=== PATIENT | male | born 1970 | race Caucasian/White ===

== ENCOUNTER 2016-11-08 10:17 | Day surgery (SDC) | payer OTHER ==
[~2016-11-08] VITALS: Ht 170.2 cm; Wt 107.5 kg
[~2016-11-08 10:17] MED LIST: AMITRIPTYLINE H25 MG PO; BACTRIM,SEPT1 TABLET PO; DILAUDID2 MG PO; GABAPENTIN400 MG PO; KEFLEX500 MG PO; MEDROL DOSEPAK4 MG PO; MORPHINE SULFAT15 M1 PO; OXYCODONE-APAP1 EACH; PAIN RELIEF325 MG PO; PERCOCET 10/1 TABLET PO; PERCOCET 5/31 TABLET PO; RELAFEN500 M1 PO; SKELAXIN800 MG PO; ZOFRAN4 MG PO
== END 2016-11-08 12:47 | disposition home or self-care (01) ==
LOC: PAIN 10:17 → SDC 11:00 → PAIN 12:47
DX: M47.896 Other spondylosis, lumbar region (principal); M51.36 Other intervertebral disc degeneration, lumbar region; M43.17 Spondylolisthesis, lumbosacral region; F41.1 Generalized anxiety disorder; I10 Essential (primary) hypertension; E78.5 Hyperlipidemia, unspecified; Z79.891 Long term (current) use of opiate analgesic; G62.9 Polyneuropathy, unspecified; M79.1 Myalgia
CPT/HCPCS: J1030; J2250; J3010; S0020

== ENCOUNTER 2016-11-15 08:38 | Day surgery (SDC) | payer OTHER ==
[~2016-11-15] VITALS: Ht 170.2 cm; Wt 107.5 kg
== END 2016-11-15 11:08 | disposition home or self-care (01) ==
LOC: PAIN 08:38 → SDC 09:15 → PAIN 09:15
DX: M47.896 Other spondylosis, lumbar region (principal); M51.36 Other intervertebral disc degeneration, lumbar region; F41.1 Generalized anxiety disorder; M79.1 Myalgia; I10 Essential (primary) hypertension; E78.5 Hyperlipidemia, unspecified; M25.552 Pain in left hip
CPT/HCPCS: J1030; J2250; J3010; S0020